=== PATIENT | female | born 1945 | race Asian ===

== ENCOUNTER 2016-06-12 07:40 | Day surgery (SDC) | payer BC ==
[~2016-06-12] VITALS: Ht 154.9 cm; Wt 53.0 kg
[2016-06-12] VITALS (7 sets, daily range): BP systolic 111–133; BP diastolic 60–68; PULSE 75–89; RESP 16–36; Ht 154.9 cm; Wt 53.0 kg
[2016-06-12] MEDS ORDERED: TROPICAMIDE 1% 2 ML OPH OPER SCH (08:30)
[2016-06-12] MEDS ORDERED: CYCLOPENTOLATE/PHENYLEPH 2 ML OPH OPER SCH (08:30)
[2016-06-12] MEDS ORDERED: CIPROFLOXACIN 0.3% 2.5 ML OPH OPER SCH (08:30)
[2016-06-12] MEDS ORDERED: DICLOFENAC 0.1% 2.5 ML OPH OPER SCH (08:30)
[2016-06-12] MEDS ORDERED: LANT3I SC (08:37)
[2016-06-12] MEDS ORDERED: GLIP5TAB13 PO (08:38)
[2016-06-12] MEDS ORDERED: ASPI81TA3 PO (08:39)
[2016-06-12] MEDS ORDERED: LOSA50TA6 PO (08:39)
[2016-06-12] MEDS ORDERED: ATOR40TA68 PO (08:43)
[2016-06-12] MEDS ORDERED: NIFE60TA7 PO (08:44)
[2016-06-12] MEDS ORDERED: FURO-109 PO (08:45)
[2016-06-12] MEDS ORDERED: FER325 PO (09:02)
[2016-06-12] MEDS ORDERED: CEFAZOLIN 1 GM INJ ONE (10:09)
[2016-06-12] MEDS ORDERED: EPINEPHrine 1 MG INJ ONE (10:09)
[2016-06-12] MEDS ORDERED: HYALURONATE/CHONDROITIN 1ML OPH INJ ONE (10:09)
[2016-06-12] MEDS ORDERED: GENTAMICIN 80 MG INJ ONE (10:09)
[2016-06-12] MEDS ORDERED: DEXAMETHASONE 4 MG/ML 1 ML INJ ONE (10:09)
[2016-06-12] MEDS ORDERED: LIDOCAINE 4% (MPF) 5 ML INJ ONE (10:09)
[2016-06-12] MEDS ORDERED: DEXAMETHASONE 4 MG/ML 1 ML INJ INJ ONE (10:19)
[2016-06-12] MEDS ORDERED: HYALURONATE/CHONDROITIN 1ML OPH INJ IO ONE (10:19)
[2016-06-12] MEDS ORDERED: CARBACHOL 0.01% 1.5 ML OPH INJ IO ONE (10:19)
[2016-06-12] MEDS ORDERED: CEFAZOLIN 1 GM INJ INJ ONE (10:19)
--- NOTE | 2016-06-12 10:20 | PREOPHP ---
DATE OF ADMISSION: 06/12/2016 HISTORY OF PRESENT ILLNESS: This 70-year-old patient is admitted for elective cataract surgery of t he right eye. The patient has had progressive deterioration of vision in both eyes for the past 3 y ears without prior history of eye disease or injury. The patient has a 10 year history of insulin-d ependent diabetes mellitus as well as systemic hypertension and hypercholesterolemia. CURRENT MEDICATIONS INCLUDE: 1. Lantus insulin. 2. Simvastatin. 3. Nifedipine. 4. Aspirin. (discontinued 1 week prior to surgery). ALLERGIES: THERE ARE NO KNOWN ALLERGIES. PHYSICAL EXAMINATION: Visual acuity with best correction is finger counting at 1 foot in both eyes. Slit lamp examination reveals anterior cortical nuclear sclerotic and posterior subcapsular catara ct changes in both eyes. Applanation tonometry is 19 mmHg. Examination of the retina does not reve al the presence of any diabetic retinopathy that can be seen through the cataract opacities in the m edia. DIAGNOSIS: Cataract, right eye. PLAN: Cataract extraction with lens implant, right eye. The risks and alternatives to the surgery have been discussed with the patient as well as the hopeful improvement of visual acuity leading to a greater ability to perform activities of daily living. The patient understands this and agrees to proceed with surgery. Dictated By: MP LERMA/URIAH Conf#: [id number] DID#: [id number]
[2016-06-12] MEDS ORDERED: ONDANSETRON 4 MG INJ IV PRN (10:30)
[2016-06-12] MEDS ORDERED: OXYCODONE/ACETAMINOPHEN (5/325) TAB PO PRN (10:30)
[2016-06-12] MEDS ORDERED: FENTAnyl 50 MCG/ML VIAL IV PRN (10:30)
[2016-06-12] MEDS ORDERED: HYDROmorphONE (0.2 MG/ML) 10ML SYG IV PRN (10:30)
[2016-06-12] MEDS ORDERED: PROCHLORPERAZINE 10 MG INJ IV PRN (10:30)
[2016-06-12] MEDS ORDERED: FENTAnyl 50 MCG/ML VIAL ONE (10:42)
[2016-06-12] MEDS ORDERED: LIDOCAINE 2% (SDV) 5 ML INJ ONE (10:42)
[2016-06-12] MEDS ORDERED: PROPOFOL 20 ML ONE (10:42)
--- NOTE | 2016-06-12 11:18 | OPR ---
DATE OF OPERATION: 06/12/2016 PREOPERATIVE DIAGNOSIS: Cataract, right eye. POSTOPERATIVE DIAGNOSIS: Cataract, right eye. OPERATION PERFORMED: Cataract extraction with lens implant, right eye. SURGEON: Mp Reyes MD. ANESTHESIA: Dr. Cyr. PROCEDURE: The patient was brought to the operating room and placed on the table with an IV in plac e and the patient attached to an chief compliance officer. Oxygen was given via face mask. After some intravenous sedation was administered, local anesthesia was given using Xylocaine 2% with epinephrine, mixed with Marcaine 0.5%. This was given in a lid block and retrobulbar injection. The patient was then prepped and draped in the usual sterile manner. A wire lid speculum was inserted between the lids of the right eye. A Superblade was used to enter t he anterior chamber at the corneoscleral limbus at the 10:30 o'clock position. A separate incision w as made using a 3.0-mm keratome which entered the corneoscleral junction at the 12 o'clock position. Through this 3-mm opening, an irrigating cystitome was introduced into the anterior chamber. The ch marina was filled with Viscoat and an anterior capsulotomy was performed. Balanced salt solution was then used for hydrodissection of the lens. A phacoemulsification handpiece was then brought into th e field and introduced into the anterior chamber. The lens nucleus was emulsified using a deep groov e and cracking the nucleus into quadrants. Following this, each quadrant was aspirated and emulsifie d at the pupillary margin. After this was completed, the irrigation/aspiration handpiece was brought to the field, introduced i nto the posterior chamber, and the lens cortical material was removed. When this was completed, davida tional Viscoat was injected into the anterior and posterior chambers. The 3-mm opening had its internal lips enlarged, and then the posterior chamber intraocular lens partha suring 17.0 diopters ([employer] model [id number]) was then injected into the posterior chamber using the lens injector system. After the leading haptic was introduced into the capsular b ag and the lens optic was present in the center of the eye, the injector was removed and the trailin g haptic was grasped with non-toothed forceps and introduced into the capsular fold superiorly. A Si nskey hook was then used to rotate the intraocular lens so that the lips were oriented in the horizo ntal meridian. One 10-0 nylon suture was placed across the wound. Prior to tying, the irrigation/aspiration handpiece was reintroduced into the anterior chamber to re move the Viscoat. Miochol was instilled to constrict the pupil, and then the 10-0 nylon suture was t ied. The ends were cut short and then the knot was buried. Then, 0.5 mL of dexamethasone and 0.5 mL of Ancef were injected into the sub-Tenon space in the infe rior fornix. Ciloxan drops were then placed on the surface of the eye. The speculum was removed and a patch was applied. The patient then left the operating room in satisfactory condition. Dictated By: MP LERMA/URIAH Conf#: [id number] DID#: [id number]
== END 2016-06-12 12:45 | disposition home or self-care (01) ==
LOC: SDS 07:40
PROVIDERS: ATTEND Ophthalmology
DX: H25.11 Age-related nuclear cataract, right eye (principal); E11.9 Type 2 diabetes mellitus without complications; Z79.4 Long term (current) use of insulin; I10 Essential (primary) hypertension; E78.5 Hyperlipidemia, unspecified
CPT/HCPCS: 66984; 82962; J0171; J0690; J1100; J1580; J3010; V2632; Z7512; Z7610

== ENCOUNTER 2018-09-09 07:14 | Day surgery (SDC) | payer BC ==
[~2018-09-09] VITALS: Ht 154.9 cm; Wt 47.3 kg
[~2018-09-09 07:14] MED LIST: ASPI-903 PO; ATOR40TA68 PO; CIPROFLOXACIN 0.3% 2.5 ML OPH OPER SCH; CYCLOPENTOLATE/PHENYLEPH 2 ML OPH OPER SCH; DICLOFENAC 0.1% 2.5 ML OPH OPER SCH; FER325 PO; FURO-109 PO; GLIP5TAB13 PO; HEPARIN 1000 UNITS/ML 10 ML INJ IRR ONE; LANT3I SC; LOSA50TA14 PO; NIFE60TA18 PO; TROPICAMIDE 1% 2 ML OPH OPER SCH
[2018-09-09] MEDS ORDERED: LIDOCAINE 1% (MPF) 30 ML INJ ONE (08:41)
[2018-09-09] MEDS ORDERED: GELATIN SIZE 100 SPONGE ONE (08:41)
[2018-09-09] MEDS ORDERED: THROMBIN (BOVINE) 5,000 UNIT VIAL TP ONE (08:41)
[2018-09-09] MEDS ORDERED: ROCS PO (08:53)
[2018-09-09] MEDS ORDERED: CLOP75TA27 PO (08:53)
[2018-09-09] MEDS ORDERED: LANT3I SC (08:53)
[2018-09-09] MEDS ORDERED: AMLO-147 PO (08:53)
[2018-09-09] MEDS ORDERED: HYDR-3672 PO (08:53)
[2018-09-09] MEDS ORDERED: MAGN400T27 PO (08:53)
[2018-09-09] MEDS ORDERED: NITR0.4T39 SL (08:53)
[2018-09-09] MEDS ORDERED: SODI650T PO (08:53)
[2018-09-09] MEDS ORDERED: ISOS5TAB2 PO (08:53)
[2018-09-09] MEDS ORDERED: CARV12.598 PO (08:53)
[2018-09-09] MEDS ORDERED: FURO-110 PO (08:53)
[2018-09-09 08:56] VITALS: BP 144/66; PULSE 66; RESP 16
[2018-09-09 08:57] VITALS: Ht 154.9 cm; Wt 47.3 kg
[2018-09-09] MEDS ORDERED: SOD CHLORIDE 0.9% 500 ML IV SCH (09:00)
== END 2018-09-09 10:01 | disposition home or self-care (01) ==
LOC: SDS 07:14
PROVIDERS: ATTEND Surgery
DX: I12.0 Hypertensive chronic kidney disease with stage 5 chronic kidney disease or end stage renal disease (principal); N18.5 Chronic kidney disease, stage 5; Z53.09 Procedure and treatment not carried out because of other contraindication; I25.10 Atherosclerotic heart disease of native coronary artery without angina pectoris; I25.2 Old myocardial infarction; J44.9 Chronic obstructive pulmonary disease, unspecified; Z87.891 Personal history of nicotine dependence; Z79.4 Long term (current) use of insulin
CPT/HCPCS: 71045; 80053; 82962; 85014; 85018; 85025; 85610; 85730; 93005; J1644

== ENCOUNTER 2018-09-09 10:13 | Inpatient (IN) | payer BC, OTHER ==
[~2018-09-09] VITALS: Ht 154.9 cm; Wt 47.7 kg
[~2018-09-09 10:13] MED LIST changes: +AMLO-147 PO; +CARV12.598 PO; -CIPROFLOXACIN 0.3% 2.5 ML OPH OPER SCH; +CLOP75TA27 PO; -CYCLOPENTOLATE/PHENYLEPH 2 ML OPH OPER SCH; -DICLOFENAC 0.1% 2.5 ML OPH OPER SCH; +FURO-110 PO; -HEPARIN 1000 UNITS/ML 10 ML INJ IRR ONE; +HYDR-3672 PO; +ISOS5TAB2 PO; +MAGN400T27 PO; +NITR0.4T39 SL; +ROCS PO; +SODI650T PO; -TROPICAMIDE 1% 2 ML OPH OPER SCH
--- NOTE | 2018-09-09 10:48 | ERD ---
ER Documentation Chief Complaint Chief Complaint fr SDS low H/H 6.8/22.2 HPI This is a 72-year-old female with a history of stage V kidney disease currently waiting to begin hemodialysis. Her delivery recruiter is Dr. Lobo. The patient was scheduled for same-day surgery today at [facility] with the vascular surgeon Dr. Lopez for fistula placement. Dr. Lopez indicated that the patient had significant pallor. Ancillary laboratory was obtained that indicated the patient had a hemoglobin of 6.8 and hematocrit 22.2. The patient does have a history of anemia of chronic disease. Dr. Lopez sent the patient to the emergency department for blood transfusion. He had also spoken with her delivery recruiter Dr. Lobo who requested the patient received 2 units of packed red blood cells and 20,000 units of Epogen subcutaneously to improve her symptoms. The patient denies any chest pain. She is no shortness of breath at rest or exertion. She does complain of generalized weakness. She is no headache or changes in vision. She has a history of previous coronary artery disease with cardiac stents and on Plavix. Patient stopped Plavix 5 days ago as instructed by her vascular surgeon due to the procedure that she was supposed to have today. The patient had blood transfusions in the past most recently 1 month ago. She denies any hemoptysis no hematemesis no melanotic stools ROS All systems reviewed and are negative except as per history of present illness. Medications Home Meds Reported Medications Nitroglycerin* (Nitrostat*) 0.4 Mg Tab.subl, 0.4 MG SL Q5MIN PRN for CHEST PAIN, BOTTLE 09/09/18 Magnesium Oxide* (Mag-Oxide*) 400 Mg Tablet, 400 MG PO DAILY, TAB 09/09/18 Sodium Bicarbonate* (Sodium Bicarbonate*) 650 Mg Tablet, 650 MG PO DAILY, TAB 09/09/18 Isosorbide Dinitrate* (Isosorbide Dinitrate*) 5 Mg Tablet, 5 MG PO BID, TAB 09/09/18 Hydralazine Hcl* (Hydralazine Hcl*) 50 Mg Tab, 100 MG PO TID, #180 TAB 09/09/18 Furosemide* (Lasix*) 20 Mg Tablet, 20 MG PO DAILY, TAB 09/09/18 Clopidogrel Bisulfate (Clopidogrel) 75 Mg Tablet, 75 MG PO DAILY, #30 TAB 09/09/18 Carvedilol* (Coreg*) 12.5 Mg Tablet, 12.5 MG PO BID, #60 TAB 09/09/18 Insulin Glargine* (Lantus*) 100 Unit/Ml Soln, 14 UNIT SC QHS, #1 VIAL 09/09/18 Calcitriol* (Rocaltrol*) 1 Mcg/Ml Soln, 0.25 MCG PO DAILY, ML 09/09/18 Amlodipine Besylate* (Amlodipine Besylate*) 10 Mg Tablet, 10 MG PO DAILY, #30 TAB 09/09/18 Ferrous Sulfate* (Ferrous Sulfate*) 325 Mg Tabec, 325 MG PO DAILY, TAB 06/12/16 Atorvastatin* (Atorvastatin*) 40 Mg Tablet, 40 MG PO QHS, #30 TAB 06/12/16 Discontinued Reported Medications Furosemide* (Lasix*) 40 Mg Tablet, 40 MG PO DAILY, TAB 06/12/16 Nifedipine* (Nifedipine ER*) 60 Mg Tablet.sa, 60 MG PO DAILY, TAB.SA 06/12/16 Aspirin* (Aspirin* Chew) 81 Mg Tab.chew, 81 MG PO DAILY, TAB.CHEW 06/12/16 Losartan Potassium* (Losartan Potassium*) 50 Mg Tablet, 50 MG PO BID, TAB 06/12/16 Glipizide* (Glipizide*) 5 Mg Tablet, 5 MG PO TID, TAB 06/12/16 Insulin Glargine* (Lantus*) 100 Unit/Ml Soln, 14 UNIT SC QHS, #1 VIAL 06/12/16 Allergies Allergies: Coded Allergies: prednisone (Verified Allergy, Unknown, Rash, 09/09/18) PMhx/Soc History of Surgery: Yes (Right eye cataract removal, x 1 cardiac stent placement) Anesthesia Reaction: No Hx Neurological Disorder: No Hx Respiratory Disorders: Yes (History of pneumonia) Hx Cardiac Disorders: Yes (Hypertension, hyperlipidemia) Hx Psychiatric Problems: No Hx Miscellaneous Medical Probl: No Hx Alcohol Use: No Hx Substance Use: No Hx Tobacco Use: No Smoking Status: Never smoker Physical Exam Vitals Vital Signs Date Temp Pulse Resp B/P (MAP) Pulse Ox O2 O2 Flow FiO2 Time Delivery Rate 09/09/18 97.5 64 18 154/61 98 Room Air 12:00 (92) 09/09/18 97.8 63 18 152/65 98 Room Air 10:49 (94) 09/09/18 96.5 56 18 167/76 97 10:17 (106) Physical Exam Constitutional:Well-developed. Well-nourished. HEENT:Normocephalic. Atraumatic.Pupils were equal round reactive to light. Moist mucous membranes.No tonsillar exudates. Conjunctival pallor Neck: No nuchal rigidity. No lymphadenopathy. No posterior cervical spine tenderness or step-offs. Respiratory: Not using accessory muscles of respiration.Lungs were clear to auscultation bilaterally. No rhonchi. No rales. No wheezing. Cardiovascular: Regular rate regular rhythm.No murmurs. No rubs were appreciated.S1, S2 normal. Distal pulses are palpable 2+ bilaterally. GI: Abdomen was soft. Nontender. Non Distended. No pulsatile abdominal masses or bruits. No rebound. No guarding. Bowel sounds were present and normal. Muscle skeletal: Full range of motion of both the upper and lower extremities bilaterally.Normal muscle tone.No assymetrical calf tenderness or swelling. Skin: No petechia, no purpura. No lesions on the palms or the soles of the feet. No maculopapular rash. Significant pallor NEURO: Patient was alert, awake, orientated x3.No facial droop. Gait observed and normal with no ataxia.Speech had regular rate and rhythm. No focal neurological deficits. Result Diagram: 09/09/18 1101 09/09/18 1101 Results 24 hrs Laboratory Tests Test 09/09/18 11:01 White Blood Count 3.5 10^3/ul Red Blood Count 3.57 10^6/ul Hemoglobin 7.1 g/dl Hematocrit 23.5 % Mean Corpuscular Volume 65.8 fl Mean Corpuscular Hemoglobin 19.9 pg Mean Corpuscular Hemoglobin Concent 30.2 g/dl Red Cell Distribution Width 18.6 % Platelet Count 192 10^3/UL Mean Platelet Volume 8.4 fl Immature Granulocytes % 0.300 % Neutrophils % 51.3 % Lymphocytes % 29.9 % Monocytes % 14.2 % Eosinophils % 3.7 % Basophils % 0.6 % Nucleated Red Blood Cells % 0.0 /100WBC Immature Granulocytes # 0.010 10^3/ul Neutrophils # 1.8 10^3/ul Lymphocytes # 1.1 10^3/ul Monocytes # 0.5 10^3/ul Eosinophils # 0.1 10^3/ul Basophils # 0.0 10^3/ul Nucleated Red Blood Cells # 0.0 10^3/ul Prothrombin Time 12.2 Sec Prothrombin Time Ratio 1.0 INR International Normalized Ratio 0.89 Activated Partial Thromboplast Time 32.0 Sec Sodium Level 139 mmol/L Potassium Level 5.1 mmol/L Chloride Level 108 mmol/L Carbon Dioxide Level 21 mmol/L Anion Gap 10 Blood Urea Nitrogen 54 mg/dl Creatinine 4.22 mg/dl Est Glomerular Filtrat Rate mL/min mL/min Glucose Level 111 mg/dl Calcium Level 9.8 mg/dl Total Bilirubin 0.3 mg/dl Direct Bilirubin 0.00 mg/dl Indirect Bilirubin 0.3 mg/dl Aspartate Amino Transf (AST/SGOT) 21 IU/L Alanine Aminotransferase (ALT/SGPT) 14 IU/L Alkaline Phosphatase 57 IU/L Troponin I < 0.012 ng/ml Total Protein 7.2 g/dl Albumin 3.9 g/dl Globulin 3.30 g/dl Albumin/Globulin Ratio 1.18 Current Medications Medications Dose Sig/Samuel Start Time Status Last (Trade) Ordered Route PRN Stop Time Admin Dose Reason Admin Epoetin 20,000 units ONCE SC 09/09/18 Cancel Rai 11:00 (Epogen (*Nicu)) Epoetin 20,000 unit ONCE ONCE 09/09/18 Cancel Rai-epbx SC 11:00 (Retacrit 09/09/18 11:01 (Esrd)) Epoetin 20,000 unit ONCE ONCE 09/09/18 DC 09/09/18 Rai-epbx SC 11:00 11:11 (Retacrit 09/09/18 11:01 (Esrd)) Ondansetron 4 mg ER BRIDGE 09/09/18 HCl (Zofran PRN IV 13:30 Inj) NAUSEA/VOMITI 09/10/18 13:29 NG 650 mg ER BRIDGE 09/09/18 Acetaminophen PRN PO 13:30 (Tylenol .MILD PAIN 09/10/18 13:29 Tab) 1-3 OR TEMP Ondansetron 4 mg ER BRIDGE 09/09/18 HCl (Zofran PRN IV 13:30 Inj) NAUSEA/VOMITI 09/10/18 13:29 NG 650 mg ER BRIDGE 09/09/18 Acetaminophen PRN PO 13:30 (Tylenol .MILD PAIN 09/10/18 13:29 Tab) 1-3 OR TEMP Procedures/MDM This is 72-year-old female with a known history of anemia of chronic disease that presented to the emergency department from same-day surgery requiring a blood transfusion. Her delivery recruiter had requested the patient received 2 units of packed red blood cells and 20,000 units of Epogen subcutaneously. This was provided to the patient. The patient had a type and screen. She was admitted to the hospitalist Dr. Brown in serious condition. She will go to the telemetry service in order to monitor for any cardiac arrhythmias during the blood transfusion. 12 Lead EKG tracing ordered and reviewed by myself showed: Normal sinus rhythm of 62 bpm and no arrhythmia. NH interval normal. QRS duration normal. No ST segment elevation No ST segment depression. No changes consistent with acute ischemia. Departure Diagnosis: Primary Impression: Anemia Anemia type: due to chronic kidney disease Chronic kidney disease stage: stage 5, not on chronic dialysis Qualified Codes: N18.5 - Chronic kidney disease, stage 5; D63.1 - Anemia in chronic kidney disease Additional Impression: Chronic kidney disease Chronic kidney disease stage: stage 5, not on chronic dialysis Qualified Codes: N18.5 - Chronic kidney disease, stage 5 Condition: Serious SIRI ZELAYA MD Sep 09, 2018 10:48
[2018-09-09] MEDS ORDERED: EPOETIN 2000 UNITS/ML SYG (NICU) SC SCH (11:00)
[2018-09-09] MEDS ORDERED: EPOETIN ALFA-EPBX (ESRD) 10,000 UNIT/ML VIAL SC ONE ×2 (11:00)
[2018-09-09] MEDS ORDERED: ONDANSETRON 4 MG INJ IV PRN ×3 (13:30→15:00)
[2018-09-09] MEDS ORDERED: ACETAMINOPHEN 325 MG TAB PO PRN ×3 (13:30→15:00)
--- NOTE | 2018-09-09 14:57 | HP ---
Date/Time of Note Date/Time of Note DATE: 09/09/18 TIME: 14:52 Assessment/Plan VTE Prophylaxis SCD applied (from Nsg): Yes Pharmacological prophylaxis: NA/contraindicated Pharm contraindication: other (Anemia) Lines/Catheters IV Catheter Type (from Nrsg): Saline Lock Assessment/Plan Hospital Course Assessment and plan 1. Anemia. Likely of chronic disease. Patient to be transfused PRBC in the ER. Follow-up on H&H. Patient also received Epogen 20,000 units as per requested per her automobile mechanic helper. Will monitor for now. 2. CKD. Wind Up Worker to follow. Monitor electrolytes and renal panel. Correc t electrolytes as needed. 3. Hypertension. Will resume on antihypertensives. Will adjust as needed. 4. History of CAD with stent. Patient to be resumed on antiplatelet and statin medication. Monitor for anemia. 5. Hyperlipidemia. Follow-up on fasting lipid panel. Continue on statin medic ation. 6. Suspect iron deficiency. Follow-up on iron panel. Will resume patient's home iron supplement. 7. Reported history of CHF. Denies any shortness of breath at this time. Continue beta-rodney for now. Patient does report she follows up with her hog grader Dr. Coelho as outpatient. Discussed POC with Dr. Brown Result Diagram: 09/09/18 1101 09/09/18 1101 Results 24hrs Laboratory Tests Test 09/09/18 11:01 White Blood Count 3.5 L Red Blood Count 3.57 L Hemoglobin 7.1 L Hematocrit 23.5 L Mean Corpuscular Volume 65.8 L Mean Corpuscular Hemoglobin 19.9 L Mean Corpuscular Hemoglobin Concent 30.2 L Red Cell Distribution Width 18.6 H Platelet Count 192 Mean Platelet Volume 8.4 Immature Granulocytes % 0.300 Neutrophils % 51.3 Lymphocytes % 29.9 Monocytes % 14.2 H Eosinophils % 3.7 Basophils % 0.6 Nucleated Red Blood Cells % 0.0 Immature Granulocytes # 0.010 Neutrophils # 1.8 Lymphocytes # 1.1 Monocytes # 0.5 Eosinophils # 0.1 Basophils # 0.0 Nucleated Red Blood Cells # 0.0 Prothrombin Time 12.2 Prothrombin Time Ratio 1.0 INR International Normalized Ratio 0.89 Activated Partial Thromboplast Time 32.0 Sodium Level 139 Potassium Level 5.1 Chloride Level 108 Carbon Dioxide Level 21 Anion Gap 10 Blood Urea Nitrogen 54 H Creatinine 4.22 H Est Glomerular Filtrat Rate mL/min Glucose Level 111 Calcium Level 9.8 Total Bilirubin 0.3 Direct Bilirubin 0.00 Indirect Bilirubin 0.3 Aspartate Amino Transf (AST/SGOT) 21 Alanine Aminotransferase (ALT/SGPT) 14 Alkaline Phosphatase 57 Troponin I < 0.012 Total Protein 7.2 Albumin 3.9 Globulin 3.30 H Albumin/Globulin Ratio 1.18 HPI/ROS Admit Date/Time Admit Date/Time Hx of Present Illness This is a 72-year-old female with history of CHF, CKD 5, hypertension, hyperlipidemia, CAD with stent 1 year ago, diabetes, who came to [facility] for elective procedure to get AV fistula placed by Dr. Mcgrath Patient was getting prepped for surgery however after labs were reviewed it was noted that the patient was anemic with hemoglobin of 6.8 and hematocrit 22.2. Patient was brought to the hospital for further evaluation. Of note her automobile mechanic helper is Dr. Lobo recommended transition her blood as well as Epogen 20,000 units to be provided to the patient. Patient to admission reported that she had been feeling just generally weak but denies any chest pain or shortness of breath. Denies any fevers at home or any other pain. Currently she remains alert and oriented. No signs of distress. Recent hemoglobin check at 7.1 and hematocrit 23.5. We will evaluate her for the aformentiond issues. ROS 12 point review of systems obtained and entirely negative except as mentioned in the history of present illness PMH/Family/Social Past Medical History Medical/surgical history 1. CHF 2. CKD 5 2. Hypertension 4. Hyperlipidemia 5. CAD with stent 1 year ago 6. Diabetes Medications Current Medications Ondansetron HCl (Zofran Inj) 4 mg ER BRIDGE PRN IV NAUSEA/VOMITING; Start 09/09/18 at 13:30; Stop 09/10/18 at 13:29 Acetaminophen (Tylenol Tab) 650 mg ER BRIDGE PRN PO .MILD PAIN 1-3 OR TEMP; Start 09/09/18 at 13:30; Stop 09/10/18 at 13:29 Ondansetron HCl (Zofran Inj) 4 mg ER BRIDGE PRN IV NAUSEA/VOMITING; Start 09/09/18 at 13:30; Stop 09/10/18 at 13:29 Acetaminophen (Tylenol Tab) 650 mg ER BRIDGE PRN PO .MILD PAIN 1-3 OR TEMP; Start 09/09/18 at 13:30; Stop 09/10/18 at 13:29 Amlodipine Besylate (Norvasc) 10 mg DAILY PO ; Start 09/10/18 at 09:00; Status UNV Atorvastatin Calcium (Lipitor) 40 mg QHS PO ; Start 09/09/18 at 21:00; Status UNV Calcitriol (Rocaltrol Liquid (Ped)) 0.25 mcg DAILY PO ; Start 09/10/18 at 09:00; Status UNV Carvedilol (Coreg) 12.5 mg BID PO ; Start 09/09/18 at 21:00; Status UNV Clopidogrel Bisulfate (plaVIX) 75 mg DAILY PO ; Start 09/10/18 at 09:00; Status UNV Ferrous Sulfate (Ferrous Sulfate (Ec)) 325 mg DAILY PO ; Start 09/10/18 at 09:00; Status UNV Furosemide (Lasix) 20 mg DAILY PO ; Start 09/10/18 at 09:00; Status UNV Hydralazine HCl (Apresoline) 100 mg TID PO ; Start 09/09/18 at 21:00; Status UNV Isosorbide Dinitrate (Isordil) 5 mg BID PO ; Start 09/09/18 at 21:00; Status UNV Magnesium Oxide (Mag-Ox 400) 400 mg DAILY PO ; Start 09/10/18 at 09:00; Status UNV Sodium Bicarbonate (Sodium Bicarbonate Tab) 650 mg DAILY PO ; Start 09/10/18 at 09:00; Status UNV IV Flush (NS 3 ml) 3 ml PER PROTOCOL IV ; Start 09/09/18 at 15:00; Status UNV Ondansetron HCl (Zofran Inj) 4 mg Q6H PRN IV NAUSEA/VOMITING; Start 09/09/18 at 15:00; Status UNV Acetaminophen (Tylenol Tab) 650 mg Q6H PRN PO .PAIN 1-3 OR TEMP; Start 09/09/18 at 15:00; Status UNV Morphine Sulfate (morphine) 1 mg Q4H PRN IV .SEVERE PAIN 7-10; Start 09/09/18 at 15:00; Status UNV Famotidine (Pepcid) 20 mg Q12 PO ; Start 09/09/18 at 21:00; Status UNV Coded Allergies: prednisone (Verified Allergy, Unknown, Rash, 09/09/18) Social History Alcohol Use: none Smoking Status: Never smoker Drug Use: none Exam/Review of Systems Vital Signs Vitals Vital Signs Date Temp Pulse Resp B/P (MAP) Pulse Ox O2 O2 Flow FiO2 Time Delivery Rate 09/09/18 97.5 64 18 154/61 98 Room Air 12:00 (92) Exam Constitutional: alert, oriented Psych: no complaints Neck: supple, non-tender Respiratory: clear to auscultation Cardiovascular: regular rate and rhythm Gastrointestinal: soft, non-tender Musculoskeletal: nl extremities to inspection Neurological: INSURANCE VERIFY REP II-XII intact, nl mental status, nl speech Skin: nl DAHLIA Singer NP Sep 09, 2018 14:57
[2018-09-09] MEDS ORDERED: morphine 2 MG INJ IV PRN (15:00)
[2018-09-09] MEDS ORDERED: NACL 0.9% 3 ML SYG IV SCH (15:00)
[2018-09-09 17:48] VITALS: Ht 154.9 cm; Wt 47.7 kg
[2018-09-09 20:00] VITALS: BP 162/77; PULSE 65; RESP 19
[2018-09-09] MEDS: ISOSORBIDE DINITRATE 5 MG TAB PO SCH (20:51)
[2018-09-09] MEDS ORDERED: ATORVASTATIN 40 MG TAB PO SCH (21:00)
[2018-09-09] MEDS ORDERED: FAMOTIDINE 20 MG TAB PO SCH (21:00)
[2018-09-09] MEDS ORDERED: GLUCOSE GEL 15 GRAM TUBE BUCCAL PRN (22:30)
[2018-09-09] MEDS: INSULIN ASPART [NOVOLOG] 3 ML PEN SC SCH (22:30)
[2018-09-09] MEDS ORDERED: DEXTROSE 50% 50 ML SYRINGE IV PRN ×2 (22:30)
[2018-09-09] MEDS ORDERED: GLUCAGON 1 MG INJ IM PRN (22:30)
[2018-09-09] MEDS ORDERED: GLUCOSE GEL 15 GRAM TUBE PO PRN ×2 (22:30)
[2018-09-10 02:00] VITALS: BP 147/68; PULSE 63; RESP 18
[2018-09-10] MEDS ORDERED: ACCU-CHEK XX SCH (02:00)
[2018-09-10] MEDS ORDERED: hydrALAzine 20 MG INJ IV PRN (04:30)
[2018-09-10] MEDS ORDERED: hydrALAzine 20 MG INJ ONE (04:35)
[2018-09-10 07:45] VITALS: BP 161/100; PULSE 64; RESP 16
[2018-09-10] MEDS: INSULIN ASPART [NOVOLOG] 3 ML PEN SC SCH ×2 (08:00→12:00)
[2018-09-10] MEDS: ISOSORBIDE DINITRATE 5 MG TAB PO SCH (08:37)
[2018-09-10] MEDS ORDERED: CALCITRIOL 0.25 MCG CAP PO SCH (09:00)
[2018-09-10] MEDS ORDERED: CALCITRIOL (1 MCG/ML PO SYG) PO SCH (09:00)
[2018-09-10] MEDS ORDERED: NA BICARBONATE 650 MG TAB PO SCH (09:00)
[2018-09-10] MEDS ORDERED: MAGNESIUM OXIDE 400 MG TAB PO SCH (09:00)
[2018-09-10] MEDS ORDERED: FUROSEMIDE 20 MG TAB PO SCH (09:00)
[2018-09-10] MEDS ORDERED: AMLODIPINE 10 MG TAB PO SCH (09:00)
[2018-09-10] MEDS ORDERED: FERROUS SULFATE (EC) 325 MG TAB PO SCH (09:00)
[2018-09-10] MEDS ORDERED: CLOPIDOGREL 75 MG TAB PO SCH (09:00)
[2018-09-10 10:38] VITALS: BP 159/70; PULSE 61
--- NOTE | 2018-09-10 12:16 | PN ---
Date/Time of Note Date/Time of Note DATE: 09/10/18 TIME: 12:12 Assessment/Plan VTE Prophylaxis Risk score (from Ns)>0 risk: 2 SCD applied (from Ns): Yes Pharmacological prophylaxis: NA/contraindicated Pharm contraindication: other (anemia) Lines/Catheters [facility] IV Urinary Cath still in place: No Assessment/Plan Hospital Course Assessment and plan 1. Anemia. - Likely of chronic disease. - s/p transfusion PRBC in the ER. - Patient also received Epogen 20,000 units as per requested per her director of business services. -improved . Will monitor for now. 2. CKD. - Shake Loader to follow. - Monitor electrolytes and renal panel. - Correct electrolytes as needed. - Patient was planned for AV fistula placement - will follow up with surgeon if possible placement while inhouse 3. Hypertension. - Will resume on antihypertensives. - Will adjust as needed. 4. History of CAD with stent. - continue on antiplatelet and statin medication. - Monitor for anemia. 5. Hyperlipidemia. - Continue on statin medication. 6. Suspect iron deficiency. - resume patient's home iron supplement. 7. Reported history of CHF. - Denies any shortness of breath at this time. - Continue beta-rodney for now. - Patient does report she follows up with her offset duplicating machine operator Dr. Coelho as outpatient. Disposition home. Anemia overall appears improved. Follow-up with vascular surgeon if need for placement of AV fistula while in-house. Discharge planning Discussed POC with Dr. Brown Result Diagram: 09/10/18 1134 09/10/18 0613 Results 24hrs Laboratory Tests Test 09/09/18 20:55 09/09/18 22:33 09/10/18 06:13 09/10/18 07:47 Bedside Glucose 156 129 90 Sodium Level 140 Potassium Level 5.0 Chloride Level 111 H Carbon Dioxide Level 19 L Anion Gap 10 Blood Urea Nitrogen 54 H Creatinine 3.96 H Est Glomerular Filtrat Rate mL/min Glucose Level 91 Hemoglobin A1c 5.8 Calcium Level 9.5 Phosphorus Level 4.5 Magnesium Level 2.8 H Iron Level 65 Total Iron Binding 222 L Capacity Percent Iron 29 Saturation Total Bilirubin 0.4 Direct Bilirubin 0.00 Indirect Bilirubin 0.4 Aspartate Amino 25 Transf (AST/SGOT) Alanine 9 L Aminotransferase (AL T/SGPT) Alkaline Phosphatase 51 Total Protein 6.8 Albumin 3.6 Globulin 3.20 Albumin/Globulin 1.12 Ratio Triglycerides Level 234 H Cholesterol Level 141 LDL Cholesterol, 61 Calculated HDL Cholesterol 33 Cholesterol/HDL 4.2 Ratio Thyroid Stimulating 0.960 Hormone (TSH) Free Thyroxine Index 3.08 Thyroxine (T4) 8.2 Triiodothyronine 37.6 (T3) Uptake Test 09/10/18 11:34 White Blood Count 3.8 L Red Blood Count 4.71 # Hemoglobin 10.3 #L Hematocrit 32.5 #L Mean Corpuscular 69.0 L Volume Mean Corpuscular 21.9 L Hemoglobin Mean Corpuscular 31.7 L Hemoglobin Concent Red Cell 19.5 H Distribution Width Platelet Count 178 Mean Platelet Volume 8.5 Immature 0.500 H Granulocytes % Neutrophils % 57.3 Lymphocytes % 25.8 Monocytes % 13.0 H Eosinophils % 2.6 Basophils % 0.8 Nucleated Red Blood 0.0 Cells % Immature 0.020 Granulocytes # Neutrophils # 2.2 Lymphocytes # 1.0 Monocytes # 0.5 Eosinophils # 0.1 Basophils # 0.0 Nucleated Red Blood 0.0 Cells # Subjective 24 Hr Interval Summary Free Text/Dictation comfortable at present. no specific complaints Exam/Review of Systems Exam Vitals Vital Signs Date Temp Pulse Resp B/P (MAP) Pulse Ox O2 O2 Flow FiO2 Time Delivery Rate 09/10/18 61 159/70 10:38 (99) 09/10/18 98.0 16 97 07:45 09/09/18 Room Air 15:00 Intake and Output 09/09/18 09/09/18 09/10/18 1515:00 23:00 07:00 IntakeIntake Total 350 ml 500 ml 350 ml BalanceBalance 350 ml 500 ml 350 ml Exam Constitutional: alert, oriented Psych: no complaints Neck: supple, non-tender Respiratory: clear to auscultation Cardiovascular: regular rate and rhythm Gastrointestinal: soft, non-tender Musculoskeletal: nl extremities to inspection Neurological: LABORER PIE BAKERY II-XII intact, nl mental status, nl speech Skin: nl turgor Results Results 24hrs Laboratory Tests Test 09/09/18 20:55 09/09/18 22:33 09/10/18 06:13 09/10/18 07:47 Bedside Glucose 156 129 90 Sodium Level 140 Potassium Level 5.0 Chloride Level 111 H Carbon Dioxide Level 19 L Anion Gap 10 Blood Urea Nitrogen 54 H Creatinine 3.96 H Est Glomerular Filtrat Rate mL/min Glucose Level 91 Hemoglobin A1c 5.8 Calcium Level 9.5 Phosphorus Level 4.5 Magnesium Level 2.8 H Iron Level 65 Total Iron Binding 222 L Capacity Percent Iron 29 Saturation Total Bilirubin 0.4 Direct Bilirubin 0.00 Indirect Bilirubin 0.4 Aspartate Amino 25 Transf (AST/SGOT) Alanine 9 L Aminotransferase (AL T/SGPT) Alkaline Phosphatase 51 Total Protein 6.8 Albumin 3.6 Globulin 3.20 Albumin/Globulin 1.12 Ratio Triglycerides Level 234 H Cholesterol Level 141 LDL Cholesterol, 61 Calculated HDL Cholesterol 33 Cholesterol/HDL 4.2 Ratio Thyroid Stimulating 0.960 Hormone (TSH) Free Thyroxine Index 3.08 Thyroxine (T4) 8.2 Triiodothyronine 37.6 (T3) Uptake Test 09/10/18 11:34 White Blood Count 3.8 L Red Blood Count 4.71 # Hemoglobin 10.3 #L Hematocrit 32.5 #L Mean Corpuscular 69.0 L Volume Mean Corpuscular 21.9 L Hemoglobin Mean Corpuscular 31.7 L Hemoglobin Concent Red Cell 19.5 H Distribution Width Platelet Count 178 Mean Platelet Volume 8.5 Immature 0.500 H Granulocytes % Neutrophils % 57.3 Lymphocytes % 25.8 Monocytes % 13.0 H Eosinophils % 2.6 Basophils % 0.8 Nucleated Red Blood 0.0 Cells % Immature 0.020 Granulocytes # Neutrophils # 2.2 Lymphocytes # 1.0 Monocytes # 0.5 Eosinophils # 0.1 Basophils # 0.0 Nucleated Red Blood 0.0 Cells # Medications Medication Current Medications Amlodipine Besylate (Norvasc) 10 mg DAILY PO Last administered on 09/10/18 08:36; Admin Dose 10 MG; Start 09/10/18 at 09:00 Atorvastatin Calcium (Lipitor) 40 mg QHS PO Last administered on 09/09/18 20:51; Admin Dose 40 MG; Start 09/09/18 at 21:00 Carvedilol (Coreg) 12.5 mg BID PO Last administered on 09/10/18 08:36; Admin Dose 12.5 MG; Start 09/09/18 at 21:00 Clopidogrel Bisulfate (plaVIX) 75 mg DAILY PO Last administered on 09/10/18 08:37; Admin Dose 75 MG; Start 09/10/18 at 09:00 Ferrous Sulfate (Ferrous Sulfate (Ec)) 325 mg DAILY PO Last administered on 09/10/18 08:36; Admin Dose 325 MG; Start 09/10/18 at 09:00 Furosemide (Lasix) 20 mg DAILY PO Last administered on 09/10/18 08:34; Admin Dose 20 MG; Start 09/10/18 at 09:00 Hydralazine HCl (Apresoline) 100 mg TID PO Last administered on 09/10/18 08:35; Admin Dose 100 MG; Start 09/09/18 at 21:00 Isosorbide Dinitrate (Isordil) 5 mg BID PO Last administered on 09/10/18 08:37; Admin Dose 5 MG; Start 09/09/18 at 21:00 Magnesium Oxide (Mag-Ox 400) 400 mg DAILY PO Last administered on 09/10/18 08:38; Admin Dose 400 MG; Start 09/10/18 at 09:00 Sodium Bicarbonate (Sodium Bicarbonate Tab) 650 mg DAILY PO Last administered on 09/10/18 08:35; Admin Dose 650 MG; Start 09/10/18 at 09:00 IV Flush (NS 3 ml) 3 ml PER PROTOCOL IV ; Start 09/09/18 at 15:00 Ondansetron HCl (Zofran Inj) 4 mg Q6H PRN IV NAUSEA/VOMITING; Start 09/09/18 at 15:00 Acetaminophen (Tylenol Tab) 650 mg Q6H PRN PO .PAIN 1-3 OR TEMP; Start 09/09/18 at 15:00 Morphine Sulfate (morphine) 1 mg Q4H PRN IV .SEVERE PAIN 7-10; Start 09/09/18 at 15:00 Famotidine (Pepcid) 20 mg Q48H PO Last administered on 09/09/18at 20:51; Admin Dose 20 MG; Start 09/09/18 at 21:00 Calcitriol (Rocaltrol) 0.25 mcg DAILY PO Last administered on 09/10/18 08:35; Admin Dose 0.25 MCG; Start 09/10/18 at 09:00 Diagnostic Test (Pha) (Accu-Chek) 1 ea 02 XX ; Start 09/10/18 at 02:00 Insulin Aspart (Novolog Insulin Pen) NOVOLOG *MILD* ALGORITHM WITH MEALS BEDTIME SC ; Start 09/09/18 at 22:30 Miscellaneous Information 1 ea NOTE XX ; Start 09/09/18 at 22:30 Glucose (Glutose) 15 gm Q15M PRN PO DECREASED GLUCOSE; Start 09/09/18 at 22:30 Glucose (Glutose) 22.5 gm Q15M PRN PO DECREASED GLUCOSE; Start 09/09/18 at 22:30 Dextrose (D50w Syringe) 25 ml Q15M PRN IV DECREASED GLUCOSE; Start 09/09/18 at 22:30 Dextrose (D50w Syringe) 50 ml Q15M PRN IV DECREASED GLUCOSE; Start 09/09/18 at 22:30 Glucagon (Glucagen) 1 mg Q15M PRN IM DECREASED GLUCOSE; Start 09/09/18 at 22:30 Glucose (Glutose) 15 gm Q15M PRN BUCCAL DECREASED GLUCOSE; Start 09/09/18 at 22:30 Hydralazine HCl (Apresoline) 10 mg Q4H PRN IV ELEVATED BLOOD PRESSURE Last administered on 09/10/18at 04:39; Admin Dose 10 MG; Start 09/10/18 at 04:30 DAHLIA LOMBARDI NP Sep 10, 2018 12:16
--- NOTE | 2018-09-10 12:53 | PDOCDIS ---
Discharge Instructions DIAGNOSIS Discharge Diagnosis 1. Anemia. 2. CKD. 3. Hypertension. 4. History of CAD with stent. 5. Hyperlipidemia. 6. Suspect iron deficiency. 7. Reported history of CHF. CONDITION [id number] Patient Condition: [id number] Stable HOME CARE INSTRUCTIONS: [id number] Diet Instructions: [id number] Low Fat /Cholesterol FOLLOW UP/APPOINTMENTS Follow-up Plan 1. Follow up with your hand embroiderer Dr. Lobo in one week 2. Follow up with your vascular surgeon Dr. Caleb Mcgrath in one week DAHLIA LOMBARDI NP Sep 10, 2018 12:53
--- NOTE | 2018-09-10 13:25 | PN ---
DATE: 09/10/2018 SUBJECTIVE: The patient is stable, no events overnight. No fevers, chills. The patient received bl ood transfusion yesterday, tolerated it well. No other events noted. OBJECTIVE: VITAL SIGNS: Blood pressure is 161/100, respirations 16, pulse 64, temperature 98.0. HEENT: Head is normocephalic. NECK: Supple. HEART: Regular rate. LUNGS: Show diminished breath sounds at the base. ABDOMEN: Soft, nontender to palpation without rebound or guarding. EXTREMITIES: Negative for clubbing, cyanosis, no edema. DERMATOLOGIC: No rashes. MUSCULOSKELETAL: No joint effusion. NEUROLOGIC: No change in exam. MEDICATIONS: The patient's medications have been reviewed. LABORATORY DATA: Has been reviewed. ASSESSMENT AND PLAN: This is a 72-year-old female who presents with: 1. Chronic kidney disease stage V. The patient's creatinine is currently at or near baseline as the patient has baseline EGFR of approximately 11 mL per minute. The patient has no overt signs of urem ia. No immediate need for renal replacement therapy at this time. We will continue current treatmen t plan, supportive care, renally dose all meds. 2. Anemia. Patient is status post blood transfusion, monitor hemoglobin and hematocrit levels. Con tinue Epogen. 3. Mineral bone disorder, monitor calcium and phosphorus levels. Continue phos binders. Continue Vi tamin D analogs. 4. Metabolic acidosis. Continue bicarbonate therapy. 5. Access. The patient is pending possible AV fistula placement. 6. Hypertension. Continue current blood pressure regimen. 7. History of congestive heart failure. The patient appears euvolemic. Continue current diuretic r egimen. 8. Dyslipidemia. Continue medical management. 9. History of coronary artery disease. Continue current treatment plan. Dictated By: GINO ESCALANTE/NTS Conf#: [id number] DID#: [id number] CC: JUNIOR ESTRADA; THEODORE Villar;*EndCC*
[2018-09-10] MEDS ORDERED: SODIUM POLYSTYRENE 15 GM KIT (POWDER + SORBITOL) PO ONE (13:30)
--- NOTE | 2018-09-10 13:45 | DS ---
Date/Time of Note Date/Time of Note DATE: 09/10/18 TIME: 13:41 Discharge Summary Admission/Discharge Info Admit Date/Time Sep 09, 2018 at 13:19 Discharge Date/Time Discharge Diagnosis 1. Anemia. 2. CKD. 3. Hypertension. 4. History of CAD with stent. 5. Hyperlipidemia. 6. Suspect iron deficiency. 7. Reported history of CHF. Patient Condition: Stable Hospital Course This is a 72-year-old female with history of CHF, CKD 5, hypertension, hyperlipidemia, CAD with stent 1 year ago, diabetes, who came to [facility] for elective procedure to get AV fistula placed by Dr. Mcgrath Patient was getting prepped for surgery however after labs were reviewed it was noted that the patient was anemic with hemoglobin of 6.8 and hematocrit 22.2. Patient was brought to the hospital for further evaluation. Of note her criminal profiler is Dr. Lobo recommended transition her blood as well as Epogen 20,000 units to be provided to the patient. Patient did have good response with blood transfusion. Her anemia did improve with hemoglobin of 10.3 and hematocrit of 32.5 on the day of her discharge. She was seen by inhouse criminal profiler and optimized medically. We did provide her medications to help correct electrolytes. She was advised for outpatient follow-up with her criminal profiler. We did discuss a vascular surgeon there was plan for AV fistula while in-house however after discussion, it was plan for patient for AV fistula at a later date. Patient did improve during her course of stay. She was informed of her hospital care plan. Patient verbalized understanding with the plan. She was advised for follow-up with her criminal profiler and vascular surgeon as outpatient. On the day of discharge patient was in stable condition Discussed POC with Dr. Brown Thayer Meds Reported Medications Nitroglycerin* (Nitrostat*) 0.4 Mg Tab.subl, 0.4 MG SL Q5MIN PRN for CHEST PAIN, BOTTLE 09/09/18 Magnesium Oxide* (Mag-Oxide*) 400 Mg Tablet, 400 MG PO DAILY, TAB 09/09/18 Sodium Bicarbonate* (Sodium Bicarbonate*) 650 Mg Tablet, 650 MG PO DAILY, TAB 09/09/18 Isosorbide Dinitrate* (Isosorbide Dinitrate*) 5 Mg Tablet, 5 MG PO BID, TAB 09/09/18 Hydralazine Hcl* (Hydralazine Hcl*) 50 Mg Tab, 100 MG PO TID, #180 TAB 09/09/18 Furosemide* (Lasix*) 20 Mg Tablet, 20 MG PO DAILY, TAB 09/09/18 Clopidogrel Bisulfate (Clopidogrel) 75 Mg Tablet, 75 MG PO DAILY, #30 TAB 09/09/18 Carvedilol* (Coreg*) 12.5 Mg Tablet, 12.5 MG PO BID, #60 TAB 09/09/18 Insulin Glargine* (Lantus*) 100 Unit/Ml Soln, 14 UNIT SC QHS, #1 VIAL 09/09/18 Calcitriol* (Rocaltrol*) 1 Mcg/Ml Soln, 0.25 MCG PO DAILY, ML 09/09/18 Amlodipine Besylate* (Amlodipine Besylate*) 10 Mg Tablet, 10 MG PO DAILY, #30 TAB 09/09/18 Ferrous Sulfate* (Ferrous Sulfate*) 325 Mg Tabec, 325 MG PO DAILY, TAB 06/12/16 Atorvastatin* (Atorvastatin*) 40 Mg Tablet, 40 MG PO QHS, #30 TAB 06/12/16 Discontinued Reported Medications Furosemide* (Lasix*) 40 Mg Tablet, 40 MG PO DAILY, TAB 06/12/16 Nifedipine* (Nifedipine ER*) 60 Mg Tablet.sa, 60 MG PO DAILY, TAB.SA 06/12/16 Aspirin* (Aspirin* Chew) 81 Mg Tab.chew, 81 MG PO DAILY, TAB.CHEW 06/12/16 Losartan Potassium* (Losartan Potassium*) 50 Mg Tablet, 50 MG PO BID, TAB 06/12/16 Glipizide* (Glipizide*) 5 Mg Tablet, 5 MG PO TID, TAB 06/12/16 Insulin Glargine* (Lantus*) 100 Unit/Ml Soln, 14 UNIT SC QHS, #1 VIAL 06/12/16 Follow-up Plan 1. Follow up with your criminal profiler Dr. Lobo in one week 2. Follow up with your vascular surgeon Dr. Caleb Mcgrath in one week Primary Care Provider Not On Staff Doctor Time spent on discharge: > 30 minutes Pending Labs Laboratory Tests Test 09/09/18 20:55 09/09/18 22:33 09/10/18 06:13 09/10/18 07:47 Bedside 156 129 90 Glucose mg/dL (70-220) mg/dL (70-220) mg/dL (70-220) Sodium Level 140 mmol/L (135-14 4) Potassium 5.0 Level mmol/L (3.5-5. 1) Chloride Level 111 mmol/L (97-110 ) Carbon Dioxide 19 Level mmol/L (21-31) Anion Gap 10 (5-13) Blood Urea 54 Nitrogen mg/dl (7-20) Creatinine 3.96 mg/dl (0.44-1. 00) Est Glomerular mL/min (>60) Filtrat Rate mL/min Glucose Level 91 mg/dl (70-220) Hemoglobin A1c 5.8 % (0-5.9) Calcium Level 9.5 mg/dl (8.4-10. 2) Phosphorus 4.5 Level mg/dl (2.5-4.9 ) Magnesium 2.8 Level mg/dl (1.7-2.5 ) Iron Level 65 ug/dl (35-150) Total Iron 222 Binding ug/dl (241-421 Capacity ) Percent Iron 29 % Saturation SAT (22-52) Total 0.4 Bilirubin mg/dl (0.2-1.3 ) Direct 0.00 Bilirubin mg/dl (0.00-0. 20) Indirect 0.4 Bilirubin mg/dl (0-1.1) Aspartate Amino 25 Transf (AST/SGO IU/L (15-46) T) Alanine 9 IU/L (13-69) Aminotransferas e (ALT/SGPT) Alkaline 51 Phosphatase IU/L (42-121) Total Protein 6.8 g/dl (6.1-8.1) Albumin 3.6 g/dl (3.3-4.9) Globulin 3.20 g/dl (1.3-3.2) Albumin/Globuli 1.12 n Ratio Triglycerides 234 Level mg/dl (0-149) Cholesterol 141 Level mg/dl (100-200 ) LDL 61 mg/dl Cholesterol, Calculated HDL 33 Cholesterol mg/dl (33-92) Cholesterol/HDL 4.2 RATIO Ratio Thyroid 0.960 Stimulating MIU/L (0.465-4 Hormone (TSH) .680) Free Thyroxine 3.08 Index ug/ml (0.65-3. 89) Thyroxine (T4) 8.2 ug/dl (5.5-11. 0) Triiodothyronin 37.6 e (T3) Uptake % (23.5-40.5) Test 09/10/18 11:34 09/10/18 11:57 White Blood 3.8 Count 10^3/ul (4.8-10 .8) Red Blood 4.71 Count 10^6/ul (4.20-5 .40) Hemoglobin 10.3 g/dl (12.0-16.0 ) Hematocrit 32.5 % (37.0-47.0) Mean 69.0 Corpuscular fl (82.0-101.0) Volume Mean 21.9 Corpuscular pg (29.0-33.0) Hemoglobin Mean 31.7 Corpuscular g/dl (32.0-37.0 Hemoglobin Conc ) ent Red Cell 19.5 Distribution % (11.5-14.5) Width Platelet Count 178 10^3/UL (140-41 5) Mean Platelet 8.5 Volume fl (7.4-10.4) Immature 0.500 Granulocytes % % (0.001-0.429) Neutrophils % 57.3 % (39.0-77.0) Lymphocytes % 25.8 % (15.0-51.0) Monocytes % 13.0 % (0.0-11.0) Eosinophils % 2.6 % (0.0-7.0) Basophils % 0.8 % (0.0-2.0) Nucleated Red 0.0 Blood Cells % /100WBC (0.0-0. 0) Immature 0.020 Granulocytes # 10^3/ul (0.0-0. 031) Neutrophils # 2.2 10^3/ul (1.6-7. 5) Lymphocytes # 1.0 10^3/ul (0.8-2. 9) Monocytes # 0.5 10^3/ul (0.3-0. 9) Eosinophils # 0.1 10^3/ul (0.0-0. 5) Basophils # 0.0 10^3/ul (0.0-0. 1) Nucleated Red 0.0 Blood Cells # 10^3/ul (0.0-0. 0) Sodium Level 140 mmol/L (135-144 ) Potassium 5.3 Level mmol/L (3.5-5.1 ) Chloride Level 107 mmol/L (97-110) Carbon Dioxide 20 Level mmol/L (21-31) Anion Gap 13 (5-13) Blood Urea 54 mg/dl (7-20) Nitrogen Creatinine 3.88 mg/dl (0.44-1.0 0) Est Glomerular mL/min (>60) Filtrat Rate mL/min Glucose Level 130 mg/dl (70-220) Calcium Level 9.4 mg/dl (8.4-10.2 ) Bedside 127 Glucose mg/dL (70-220) DAHLIA LOMBARDI NP Sep 10, 2018 13:45
[2018-09-10 14:20] VITALS: BP 164/74; PULSE 62; RESP 16
--- NOTE | 2018-09-11 07:08 | CONS ---
DATE OF ADMISSION: 09/09/2018 DATE OF CONSULTATION: 09/09/2018 REASON FOR CONSULTATION: Chronic kidney disease. PHYSICIAN REQUESTING CONSULT: Nurse practitioner, . HISTORY OF PRESENT ILLNESS: This is a 72-year-old female with a past medical history of chronic kidn ey disease stage V with a baseline EGFR of approximately 11 mL per minute. The patient's primary nep hrologist is Dr. Coulter. The patient has a history of congestive heart failure, hypertension, anemia, mineral bone disorder, coronary artery disease, diabetes who presents to [facility] to undergo elective procedure for AV fistula placement. The patient was not able to perform surgery because the previous laboratory data showed hemoglobin of 6.8 and hematocrit 22.2. The patient was subsequently admitted to the emergency room and admitted to med/surg for treatment of underlying anem ia. Upon my evaluation of the patient at this time, the patient is currently stable. She denies any hemo ptysis, hematemesis or hematochezia. She denies any metallic taste. PAST MEDICAL HISTORY: As stated above, history of chronic kidney disease stage V, history of hyperte nsion, history of anemia, history of mineral bone disorder. PAST SURGICAL HISTORY: Reviewed. ALLERGIES: NO KNOWN DRUG ALLERGIES. FAMILY HISTORY: No family history of kidney disease. SOCIAL HISTORY: She does not drink, smoke or do drugs. MEDICATIONS: Reviewed. REVIEW OF SYSTEMS: A 14-point review of systems was conducted. Pertinent positives stated in HPI, o therwise negative. PHYSICAL EXAMINATION: VITAL SIGNS: Blood pressure is 159/66, respirations 19, pulse 64, temperature 97.5. HEENT: Head is normocephalic. Pupils are reactive to light. NECK: Supple. HEART: Regular rate. LUNGS: Show diminished breath sounds at the base. ABDOMEN: Soft, nontender to palpation without rebound or guarding. EXTREMITIES: Negative for clubbing, cyanosis, no edema. DERMATOLOGIC: No rashes. MUSCULOSKELETAL: No joint effusion. NEUROLOGIC: No change in exam. MEDICATIONS: Reviewed. LABORATORY DATA: Reviewed. IMAGING STUDIES: Reviewed. ASSESSMENT AND PLAN: This is a 72-year-old female who presents with: 1. Chronic kidney disease stage V. The patient's baseline EGFR is approximately 11 mL per minute. The patient's renal functions is near baseline. Plan at this point is to continue current treatment, supportive care, renally dose all medications. The patient is attempting a possible AV fistula plac ement for access for eventual hemodialysis. We will continue to monitor closely. No immediate need for renal replacement at this time. The patient has no overt uremic symptoms. 2. Anemia, etiology is secondary to chronic kidney disease with a questionable component of iron def iciency. Plan is to check an iron panel. The patient is pending transfusion 1 unit PRBC. We will s tart the patient on Epogen and monitor. 3. Mineral bone disorder, monitor calcium and phosphorus levels. 4. Access. The patient is pending eventual AV fistula placement once hemodynamically and clinically stable. Followup with vascular surgery. 5. History of coronary artery disease. Continue medical management. 6. Dyslipidemia. Continue statin therapy. 7. History of congestive heart failure. The patient appears near euvolemic on exam. Continue curre nt diuretic regimen, adjust as needed. 8. Mineral bone disorder, monitor calcium and phosphorus levels. Continue vitamin D analogs. 9. Metabolic acidosis. The patient's bicarbonate levels are within normal limits. Continue sodium bicarbonate therapy. Thank you, for this interesting consult. It will be a pleasure to follow the patient with you throughout the hospital course. Dictated By: GINO DEL REAL DO NR/NTS Conf#: [id number] DID#: [id number] CC: GINO DEL REAL DO; JUNIOR ESTRADA;*EndCC*
== END 2018-09-10 17:30 | disposition home or self-care (01) | DRG 812 ==
LOC: E/R 10:13 → PP2 13:19 → EDBEDREQSVC 14:44
PROVIDERS: ADMIT Hospitalist; ATTEND Hospitalist
PROC: 30233N1 Transfusion of Nonautologous Red Blood Cells into Peripheral Vein, Percutaneous Approach (ICD-10-PCS; principal; 2018-09-09)
DX: D64.9 Anemia, unspecified (principal); N18.5 Chronic kidney disease, stage 5; I13.2 Hypertensive heart and chronic kidney disease with heart failure and with stage 5 chronic kidney disease, or end stage renal disease; E87.2 Acidosis; E78.5 Hyperlipidemia, unspecified; I25.10 Atherosclerotic heart disease of native coronary artery without angina pectoris; D63.8 Anemia in other chronic diseases classified elsewhere; E11.22 Type 2 diabetes mellitus with diabetic chronic kidney disease; I50.9 Heart failure, unspecified; D63.1 Anemia in chronic kidney disease; Z79.82 Long term (current) use of aspirin; Z79.4 Long term (current) use of insulin; Z79.02 Long term (current) use of antithrombotics/antiplatelets; Z99.2 Dependence on renal dialysis; Z95.5 Presence of coronary angioplasty implant and graft
CPT/HCPCS: 36430; 71045; 80048; 80053; 80061; 82962; 83036; 83540; 83735; 84100; 84436; 84443; 84479; 84484; 85025; 85610; 85730; 86850; 86900; 86901; 86920; 93005; 96372; J0360; J0885; J1815; P9016; Q5105